=== PATIENT | female | born 1955 | race Asian ===

== ENCOUNTER 2017-04-23 12:44 | Day surgery (SDC) | payer OTHER ==
[~2017-04-23] VITALS: Ht 154.9 cm; Wt 50.5 kg
[2017-04-23 13:11] VITALS: Ht 154.9 cm; Wt 50.5 kg
[2017-04-23] MEDS ORDERED: GLIP5TAB13 PO (13:21)
[2017-04-23] MEDS ORDERED: INSU100I27 SQ (13:21)
[2017-04-23] MEDS ORDERED: METF500T4 PO (13:21)
[2017-04-23] MEDS ORDERED: ATOR20TA65 PO (13:21)
[2017-04-23 13:54] VITALS: BP 112/59; PULSE 72; RESP 18
[2017-04-23] MEDS ORDERED: FENTAnyl 50 MCG/ML VIAL ONE (15:07)
[2017-04-23] MEDS ORDERED: MIDAZOLAM 1 MG/ML 2 ML INJ ONE ×3 (15:08)
[2017-04-23 15:30] VITALS: BP 97/55; PULSE 76; RESP 14
--- NOTE | 2017-04-23 18:38 | GILP ---
DATE OF PROCEDURE: 04/23/2017 SURGEON: Kaylee Lawson MD. PROCEDURE: Colonoscopy with polyp ablation. PREMEDICATION: Versed 5 mg, fentanyl 75 mcg. INSTRUMENT USED: Colonoscope. PREPARATION: Adequate. TECHNIQUE: After informed consent, with the patient/relatives understanding the procedure, its indications potential risks and complications, including but not limited to: allergic reaction, bleeding, perforation, infection, missed lesions and after all pertinent questions were answered to the patient's satisfaction, the patient/relatives signed the witnessed informed consent. Following this, premedication was administered slowly IV push by under careful cardiovascular and respiratory monitoring with pulse oximetry, automatic blood pressure and tool machine set up operator. Once the sedative effect was achieved, the patient was placed in the left lateral decubitus position, digital rectal examination was performed. The colonoscope was then introduced and advanced under visual control throughout all segments of the colon including: the rectum, sigmoid, descending colon, splenic flexure, transverse colon, hepatic flexure, ascending colon and finally reaching the cecum which was clearly identified by transillumination, finger indentation and the ileocecal valve. Careful examination of the mucosa of the lower gastrointestinal tract both on insertion as well as withdrawal of the instrument disclosed the following findings: RECTAL EXAMINATION: No evidence of perirectal disease, no masses. COLONIC MUCOSA: The mucosa is remarkable for the presence of a 4 mm polyp in the descending colon, which was completely ablated with biopsy forceps. There is mild diverticulosis on the left side of the colon. The mucosa is otherwise unremarkable throughout. [____] was clearly identified and was unremarkable. Instruments were withdrawn. Re-examined the mucosa in detail. No obvious abnormalities were noted with the exception of mild to moderate sized internal hemorrhoids. IMPRESSION: 1. A 4-mm polyp in the descending colon, ablated. 2. Mild diverticulosis, left side of colon. 3. Moderate-sized internal hemorrhoids. RECOMMENDATIONS: The patient will be followed up, seen as an outpatient. Hemoccult stool testing is recommended. Pathology will be reviewed as soon as it is available. Screening colonoscopy in 5 years is recommended. Dictated By: Kaylee Lawson MD /pretty/sarita /Document#: [id number]
== END 2017-04-23 17:37 | disposition home or self-care (01) ==
LOC: GIL 12:44
PROVIDERS: ATTEND Internal Medicine Gastroenterology
DX: Z12.11 Encounter for screening for malignant neoplasm of colon (principal); D12.4 Benign neoplasm of descending colon; K57.90 Diverticulosis of intestine, part unspecified, without perforation or abscess without bleeding; K64.8 Other hemorrhoids; E11.9 Type 2 diabetes mellitus without complications; E78.00 Pure hypercholesterolemia, unspecified; J45.909 Unspecified asthma, uncomplicated
CPT/HCPCS: 45380; 82962; 88305; J2250; J3010; Z7610